=== PATIENT | male | born 1990 | race Caucasian/White ===

== ENCOUNTER 2023-04-30 11:52 | Emergency (ER) | payer OTHER, SELFPAY ==
[2023-04-30 12:04] VITALS: BP 157/95; PULSE 94; RESP 16; TEMP 36.9; O2SAT 100
--- NOTE | 2023-04-30 12:18 | ED.SKABFB ---
HPI - Skin/Abscess/Foreign Bdy General Chief complaint: Skin/Abscess/Foreign Body Stated complaint: Infected Cyst Source: patient Mode of arrival: ambulatory Limitations: no limitations History of Present Illness HPI narrative: 32 y/o male presented for c/o painful red boil to right hip worsening over the past 3 days. States he had a skin colored small raised area to the site for about 2 months without any complications. Then woke 3 days ago with redness, swelling and pain to that site. He was seen at outside UC day of onset, prescribed doxy and mupirocin, but reports worsening in appearance and pain. Rates pain 9/10. 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 Also reports mild right groin swelling. Denies n/v/d/f/c. Denies any other painful skin lesions. Scheduled with Dermatology in May. Related Data Allergies Allergy/AdvReac Type Severity Reaction Status Date / Time No Known Allergies Allergy Verified 04/30/23 11:59 Review of Systems Review of Systems: CONSTITUTIONAL: Denies body aches, fever, chills, or sweats. EYES: Denies visual changes, redness, or discharge. ENT: Denies rhinorrhea, congestion CARDIOVASCULAR: Denies chest pain, palpitations, or edema. RESPIRATORY: Denies cough or dyspnea. GASTROINTESTINAL: Denies abdominal pain, nausea, vomiting, or diarrhea. SKIN: reports abscess right hip MUSCULOSKELETAL: Denies back pain, joint pain, or myalgia. NEUROLOGIC: Denies headache, numbness, tingling, or weakness. [facility] Past Medical History Medical History Alcohol abuse Family History Family History Mother Family history of alcoholism Patient's mother is in good health Father Patient's father is in good health Sibling Patient's brother is in good health Social History Social History Smoking status: Never smoker Alcohol intake: current Comments At time of signature, I have reviewed and agree with nursing past medical, surgical, social and family history unless otherwise noted. Please see nursing chart for further information. There is no relevant family history pertinent to the presenting complaint Exam Narrative: GENERAL: Well-appearing HEAD: Normocephalic, atraumatic. EYES: conjunctivae clear, and EOMI. ENT: Mucous membranes moist. Oropharynx without edema, erythema or lesions. NECK: Supple. No lymphadenopathy CHEST: Clear to auscultation. HEART: Regular rate and rhythm. SKIN: Warm, dry. Right lateral buttock with induration approx 5cm diameter, fluctuant center. No streaking. Right inguinal lymphadenopathy, mild. NEURO: Alert and oriented x3. Extrem: Upper/lower leg/hip images: 1. area of abscess Course Course Emergency Course: Patient is aware of diagnosis, understands and agrees to treatment plan. Anticipatory guidance given. Patient agrees to follow-up as directed and is aware of reasons to seek care at the emergency department. Portions of this record may have been created with voice recognition software Level of Care: Express Care Visit Vital Signs Vital signs: Vital Signs Temperature 98.5 F 04/30/23 12:04 Pulse Rate 94 04/30/23 12:04 Respiratory Rate 16 04/30/23 12:04 Blood Pressure 157/95 H 04/30/23 12:04 Pulse Oximetry 100 04/30/23 12:04 Temperature 98.5 F 04/30/23 12:04 Pulse Rate 94 04/30/23 12:04 Respiratory Rate 16 04/30/23 12:04 Blood Pressure 157/95 H 04/30/23 12:04 Pulse Oximetry 100 04/30/23 12:04 Reviewed Procedures Abscess I/D right hip: Date of Incision: 04/30/23 Local Anesthetic: lidocaine 1% Amount of anesthesia used (mL): 3 Technique: incised with #11 blade and probed loculations Irrigation: Yes (50mL) Packing used?: none I&D Results: Pus and Blood Abcess I&D Additional Comments: The procedure and its
== END 2023-04-30 13:05 | disposition home or self-care (01) ==
PROVIDERS: Emergency Provider Nurse Practitioner Family
DX: L02.415 Cutaneous abscess of right lower limb (principal)
CPT/HCPCS: 10060; 99203; G0463